=== PATIENT | male | born 1935 | race African-American/Black ===

== ENCOUNTER 2020-06-07 12:19 | Emergency (ER) | payer MEDICARE ==
[~2020-06-07] VITALS: Ht 188 cm; Wt 82.0 kg
[2020-06-07 13:19] LABS: BASOPHILS % 0.5 % (0.0-2.0); EOSINOPHILS % 2.1 % (0.0-5.0); HEMATOCRIT. 44.2 % (42.0-52.0); HEMOGLOBIN. 15.3 g/dL (14.0-18.0); LYMPHOCYTES % 29.5 % (20.0-50.0); MEAN CORPUSCULAR HEMOGLOBIN 31.6 pg (28.0-32.0); MEAN CORPUSCULAR VOLUME 91.5 fL (80.0-94.0); MEAN PLATELET VOLUME 8.5 fl (7.4-10.4); MONOCYTES % 9.3 % (2.0-8.0); NEUTROPHILS % 58.6 % (40.0-76.0); PLATELET 186 x1000/uL (130-400); RED BLOOD CELL COUNT 4.83 mill/uL (4.7-6.1); RED CELL DISTRIBUTION WIDTH 13.3 % (11.6-14.6)
[2020-06-07 13:21] LABS: CHLORIDE 107 mEq/L (98-107)
[2020-06-07 13:24] LABS: INR 3.2; PROTHROMBIN TIME 31.3 sec (9.6-11.0)
[2020-06-07] MEDS ORDERED: ASPIRIN 300MG SUPP PR ONE (13:45)
[2020-06-07] MEDS ORDERED: IOHEXOL-350 100 ML BOTTLE ONE (14:07)
[2020-06-07 16:18] VITALS: BP 159/89
== END 2020-06-07 17:48 | disposition short-term general hospital (02) ==
LOC: ER 12:46
DX: I63.9 Cerebral infarction, unspecified (principal); R47.81 Slurred speech; R29.810 Facial weakness; I48.91 Unspecified atrial fibrillation; E78.00 Pure hypercholesterolemia, unspecified
CPT/HCPCS: 36415; 70450; 70496; 70498; 71045; 80053; 82962; 83880; 84484; 85025; 85610; 85730; 86850; 86900; 86901; 93005; 99291; Q9967; 99284; 99285